=== PATIENT | female | born 1955 | race African-American/Black ===

== ENCOUNTER 2017-09-26 11:22 | Emergency (ER) | payer OTHER ==
[~2017-09-26] VITALS: Ht 160 cm; Wt 68.0 kg
[~2017-09-26 11:22] MED LIST: PROSOL
[2017-09-26 11:40] VITALS: BP 113/76
[2017-09-26] MEDS ORDERED: BENZONATATE 100MG CAPSULE PO ONE (13:45)
== END 2017-09-26 15:25 | disposition home or self-care (01) ==
LOC: ER 12:19
DX: J06.9 Acute upper respiratory infection, unspecified (principal); J45.909 Unspecified asthma, uncomplicated; F17.200 Nicotine dependence, unspecified, uncomplicated; Z88.6 Allergy status to analgesic agent
CPT/HCPCS: 99283

== ENCOUNTER 2018-04-30 16:00 | Emergency (ER) | payer OTHER ==
[~2018-04-30] VITALS: Ht 162.6 cm; Wt 66.0 kg
[2018-04-30] MEDS ORDERED: KETOROLAC 60MG/2ML VIAL IM ONE (18:15)
[2018-04-30] MEDS ORDERED: GLYCERIN PEDIATRIC SUPPOSITORY PR ONE (19:45)
[2018-04-30] MEDS ORDERED: HYDROCODONE/ACETAMINOPHEN 5/325MG TABLET PO ONE (20:30)
[2018-04-30] MEDS ORDERED: GLYCERIN PEDIATRIC SUPPOSITORY PR SCH (20:45)
[2018-04-30 20:56] LABS: CLARITY URINE CLEAR (CLEAR); COLOR URINE YELLOW (YELLOW); KETONES URINE TRACE (NEGATIVE); LEUKOCYTE ESTERASE URINE TRACE (NEGATIVE); NITRITE URINE NEGATIVE (NEGATIVE); OCCULT BLOOD URINE NEGATIVE (NEGATIVE); PH URINE 6.5 (4.5-8.0); PROTEIN URINE NEGATIVE (NEGATIVE); SPECIFIC GRAVITY URINE 1.014 (1.005-1.030); UROBILINOGEN URINE 0.2 E.U./dL (0.2-1.0)
[2018-04-30] MEDS ORDERED: NA PHOS,M-B/NA PHOS,DI-BA ENEMA 118ML PR ONE (21:00)
[2018-04-30 21:42] VITALS: BP 160/91
== END 2018-04-30 22:00 | disposition home or self-care (01) ==
LOC: ER 16:00
DX: M54.9 Dorsalgia, unspecified (principal); J45.909 Unspecified asthma, uncomplicated; I10 Essential (primary) hypertension; F17.200 Nicotine dependence, unspecified, uncomplicated; Z88.6 Allergy status to analgesic agent
CPT/HCPCS: 76770; 81003; 96372; 99285; J1885